=== PATIENT | male | born 1980 | race Caucasian/White ===

== ENCOUNTER 2018-07-11 11:22 | Inpatient (IN) | payer BC, OTHER ==
[2018-07-11 11:57] VITALS: BMI 28.8
--- NOTE | 2018-07-11 19:48 | HP ---
CIWA Score Nausea/Vomitin-Int. Nausea w/Dry Heave Muscle Tremors: 7-Severe,w/o Arm Extended Anxiety: 3 Agitation: 0-Normal Activity Paroxysmal Sweats: 3 Orientation: 0-Oriented Tacttile Disturbances: 0-None Auditory Disturbances: 0-None Visual Disturbances: 0-None Headache: 0-None Present CIWA-Ar Total Score: 17 - Admission Criteria OASAS Guidelines: Admission for Medically Managed Detox: Requires at least one of the followin. CIWA greater than 12 2. Seizures within the past 24 hours 3. Delirium tremens within the past 24 hours 4. Hallucinations within the past 24 hours 5. Acute intervention needed for co occurring medical disorder 6. Acute intervention needed for co occurring psychiatric disorder 7. Severe withdrawal that cannot be handled at a lower level of care (continued vomiting, continued diarrhea, abnormal vital signs) requiring intravenous medication and/or fluids 8. Patient presents the following: CIWA greater than 12 Admission Criteria Met: Admission criteria met Admission ROS [facility] Chief Complaint: Here for alcohol withdrawal. Allergies/Adverse Reactions: Allergies Allergy/AdvReac Type Severity Reaction Status Date / Time No Known Allergies Allergy Verified 07/11/18 14:34 History of Present Illness: Alcohol use started at age 14. Nicotine use started at age 15. States patch causes nightmares and shakes. Wants gum only Heroin use started at age 18. Currently on agonist tx. Currently at [facility] O[facility] - On Methadone 100 mg PO Daily. [phone] Hx: Blackouts - last 2 days ago. Hx: Opiate overdose - last 1 year ago. Denies hx seizures. Longest length of sobriety 2 years. PDMP negative. Hx: HTN. Denies other significant PMH/PSH States hx Barretts' Esophagus w/o recent exacerbation of acid reflux. Exam Limitations: No Limitations - Ebola screening Have you traveled outside of the country in the last 21 days: No Have you had contact with anyone from an Ebola affected area: No Have you been sick,other than usual withdrawal symptoms: No Do you have a fever: No - Review of Systems Constitutional: Chills, Diaphoresis, Changes in sleep (Difficulty falling asleep ) EENT: reports: Blurred Vision (Wears glasses), Dental Problems (Nothing acute. Chews and swallows ok.) Respiratory: reports: No Symptoms reported Cardiac: reports: No Symptoms Reported, Other (Hx HTN) GI: reports: Nausea, Indigestion (Hx. Barretts' Esophogus. Denies current GERD symptoms.) : reports: No Symptoms Reported Musculoskeletal: reports: No Symptoms Reported Integumentary: reports: No Symptoms Reported Endocrine: reports: Increased Thirst Hematology: reports: No Symptoms Reported Psychiatric: reports: Judgement Intact, Orientated x3, Anxious, Depressed ( Denies thoughts of harming self or others) Patient History - Patient Medical History Hx Asthma: No Hx Chronic Obstructive Pulmonary Disease (COPD): No Hx Cardiac Disorders: No Hx Hypertension: Yes (non compliant with med.) Hx Seizures: No Hx Diabetes: No Hx Gastrointestinal Disorders: No Hx Liver Disease: No Hx Genitourinary Disorders: No Hx Sexually Transmitted Disorders: No Hx Renal Disease (ESRD): No Hx Thyroid Disease: No Hx Human Immunodeficiency Virus (HIV): No (2018) Hx Hepatitis C: Yes (Medicated - cured) Hx Depression: Yes Hx Suicide Attempt: No Hx Schizophrenia: No - Patient Surgical History Past Surgical History: No - PPD History Previous Implant?: Yes Documented Results: Negative w/o proof Implanted On Prior [facility] Admission?: No PPD to be Administered?: Yes - Smoking Cessation Smoking history: Current every day smoker Have you smoked in the past 12 months: Yes Aproximately how many cigarettes per day: 10 Hx Chewing Tobacco Use: No Initiated information on smoking cessation: Yes 'Breaking Loose' booklet given: 07/11/18 - Substance & Tx. History Hx Alcohol Use: Yes Hx Substance Use: Yes Substance Use Type: Alcohol, Cocaine, Heroin Hx Substance Use Treatment: Yes (detox, rehab, Currently on a MMTP) - Substances Abused Alcohol Route: Oral Frequency: Daily Amount used: 2 pints vodka/ 6pk beer Age of first use: 14 Date of Last Use: 07/11/18 Admission Physical Exam BHS - Vital Signs Vital Signs: Vital Signs - 24 hr 07/11/18 11:55 Temperature 97.1 F L Pulse Rate 69 Respiratory 20 Rate Blood Pressure 147/101 H - Physical General Appearance: Yes: Mild Distress, Tremorous (Temors w/ hands at rest and becomes severe when arms elevated.) HEENTM: Yes: EOMI (but with jerking movement of eyes), Hearing grossly Normal, DAVIS Respiratory: Yes: Chest Non-Tender, Lungs Clear, Normal Breath Sounds, No Respiratory Distress Neck: Yes: No masses,lesions,Nodules, Supple Breast: Yes: Breast Exam Deferred Cardiology: Yes: Regular Rhythm, Regular Rate, S1, S2 Abdominal: Yes: Non Tender, Soft, Increased Bowel Sounds Genitourinary: Yes: Within Normal Limits Back: Yes: Normal Inspection Musculoskeletal: Yes: full range of Motion, Gait Steady, Pelvis Stable Extremities: Yes: Normal Capillary Refill, Tremors (Temors w/ hands at rest and becomes severe when arms elevated.) Neurological: Yes: senior recruiter II-XII NML intact (Grossly intact - but w/ jerking movement of eyes.), Alert, Motor Strength 5/5, Normal Mood/Affect Integumentary: Yes: Normal Color, Dry, Warm Lymphatic: Yes: Within Normal Limits - Diagnostic (1) Alcohol dependence with uncomplicated withdrawal Current Visit: Yes Status: Acute (2) Methadone maintenance therapy patient Current Visit: Yes Status: Chronic (3) Nicotine dependence, uncomplicated Current Visit: Yes Status: Acute Qualifiers: Nicotine product type: cigarettes Qualified Code(s): F17.210 - Nicotine dependence, cigarettes, uncomplicated (4) Essential (primary) hypertension Current Visit: Yes Status: Chronic (5) History of Contreras's esophagus Current Visit: Yes Status: Inactive (6) Nystagmus Current Visit: Yes Status: Acute Cleared for Admission [facility] - Detox or Rehab [facility] Level of Care: Medically Managed Detox Regimen/Protocol: Librium [facility] Breath Alcohol Content Breath Alcohol Content: 0.011 Urine Drug Screen - Results Drug Screen Negative: No Urine Drug Screen Results: BAR-Barbiturates, MTD-Methadone
[2018-07-11] MEDS ORDERED: ACETAMINOPHEN 325 MG TABLET (FP) PO PRN (20:06)
[2018-07-11] MEDS ORDERED: MENTHOL/PHENOL 1 EACH UD MM PRN (20:06)
[2018-07-11] MEDS ORDERED: MAGNESIUM HYDROX 2400MG/30ML ORAL SUSPENSION 30 ML CUP PO PRN (20:06)
[2018-07-11] MEDS ORDERED: LOPERAMIDE HCL 2 MG CAPSULE PO PRN (20:06)
[2018-07-11] MEDS ORDERED: chlordiazePOXIDE HCL 25 MG CAPSULE PO ONE (20:06)
[2018-07-11] MEDS ORDERED: chlordiazePOXIDE HCL 25 MG CAPSULE PO PRN (20:06)
[2018-07-11] MEDS ORDERED: MAG HYDROX/AL HYDROX/SIMETH 30 ML UNIT-DOSE CUP PO PRN (20:06)
[2018-07-11] MEDS ORDERED: IBUPROFEN 400 MG TABLET (FP) PO PRN (20:06)
[2018-07-11] MEDS ORDERED: MAGNESIUM CITRATE 300 ML BOTTLE PO PRN (20:06)
--- NOTE | 2018-07-11 20:13 | HP ---
CIWA Score Nausea/Vomitin-Int. Nausea w/Dry Heave Muscle Tremors: 7-Severe,w/o Arm Extended Anxiety: 3 Agitation: 0-Normal Activity Paroxysmal Sweats: 3 Orientation: 0-Oriented Tacttile Disturbances: 0-None Auditory Disturbances: 0-None Visual Disturbances: 0-None Headache: 0-None Present CIWA-Ar Total Score: 17 - Admission Criteria OASAS Guidelines: Admission for Medically Managed Detox: Requires at least one of the followin. CIWA greater than 12 2. Seizures within the past 24 hours 3. Delirium tremens within the past 24 hours 4. Hallucinations within the past 24 hours 5. Acute intervention needed for co occurring medical disorder 6. Acute intervention needed for co occurring psychiatric disorder 7. Severe withdrawal that cannot be handled at a lower level of care (continued vomiting, continued diarrhea, abnormal vital signs) requiring intravenous medication and/or fluids 8. Admission ROS [facility] Allergies/Adverse Reactions: Allergies Allergy/AdvReac Type Severity Reaction Status Date / Time No Known Allergies Allergy Verified 07/11/18 14:34 - Ebola screening Have you traveled outside of the country in the last 21 days: No Have you had contact with anyone from an Ebola affected area: No Have you been sick,other than usual withdrawal symptoms: No Do you have a fever: No Patient History - Patient Medical History Hx Asthma: No Hx Chronic Obstructive Pulmonary Disease (COPD): No Hx Cardiac Disorders: No Hx Hypertension: Yes (non compliant with med.) Hx Seizures: No Hx Diabetes: No Hx Gastrointestinal Disorders: No Hx Liver Disease: No Hx Genitourinary Disorders: No Hx Sexually Transmitted Disorders: No Hx Renal Disease (ESRD): No Hx Thyroid Disease: No Hx Human Immunodeficiency Virus (HIV): No (2018) Hx Hepatitis C: Yes (Medicated - cured) Hx Depression: Yes Hx Suicide Attempt: No Hx Schizophrenia: No - Patient Surgical History Past Surgical History: No - PPD History Previous Implant?: Yes Documented Results: Negative w/o proof Implanted On Prior [facility] Admission?: No - Smoking Cessation Smoking history: Current every day smoker Have you smoked in the past 12 months: Yes Aproximately how many cigarettes per day: 10 Hx Chewing Tobacco Use: No Initiated information on smoking cessation: Yes - Substances Abused Alcohol Route: Oral Frequency: Daily Amount used: 2 pints vodka/ 6pk beer Age of first use: 14 Date of Last Use: 07/11/18 Admission Physical Exam BHS - Vital Signs Vital Signs: Vital Signs - 24 hr 07/11/18 11:55 Temperature 97.1 F L Pulse Rate 69 Respiratory 20 Rate Blood Pressure 147/101 H - Diagnostic (1) Alcohol dependence with uncomplicated withdrawal Current Visit: Yes Status: Acute (2) Methadone maintenance therapy patient Current Visit: Yes Status: Acute (3) Nicotine dependence, uncomplicated Current Visit: Yes Status: Acute (4) Essential (primary) hypertension Current Visit: Yes Status: Acute (5) History of Contreras's esophagus Current Visit: Yes Status: Acute BHS Breath Alcohol Content Breath Alcohol Content: 0.011 Urine Drug Screen - Results Drug Screen Negative: No Urine Drug Screen Results: BAR-Barbiturates, MTD-Methadone
[2018-07-11] MEDS: chlordiazePOXIDE HCL 25 MG CAPSULE PO SCH (22:21)
[2018-07-11] MEDS: THIAMINE HCL 100 MG TABLET (FP) PO SCH (22:21)
[2018-07-11 23:28] LABS: URINE APPEARANCE CLOUDY; URINE BILIRUBIN NEGATIVE (<2.0 mg/dL); URINE COLOR YELLOW; URINE GLUCOSE (UA) NEGATIVE (NEGATIVE); URINE KETONE NEGATIVE (NEGATIVE); URINE LEUK ESTERASE 3+ (NEGATIVE); URINE NITRITE NEGATIVE (NEGATIVE); URINE PROTEIN NEGATIVE (NEGATIVE); URINE UROBILINOGEN NEGATIVE mg/dL (0.2-1.0)
[2018-07-11 23:31] LABS: EPI CELLS RARE /HPF (FEW); URINE MUCUS RARE
[2018-07-12] MEDS: chlordiazePOXIDE HCL 25 MG CAPSULE PO SCH ×4 (05:32→22:17)
[2018-07-12] MEDS ORDERED: METHADONE HCL 10 MG TABLET PO ONE (09:21)
[2018-07-12] MEDS: PRENATAL VITAMINS W/ FOLIC ACID TABLET (FP) PO SCH (10:07)
[2018-07-12] MEDS ORDERED: METHADONE HCL 40 MG DISPERSABLE TABLET ONE ×2 (10:09→10:25)
[2018-07-12] MEDS ORDERED: METHADONE HCL 10 MG TABLET ONE (10:25)
--- NOTE | 2018-07-12 10:25 | PN ---
[facility] CIWA - CIWA Score Nausea/Vomitin-No Nausea/No Vomiting (reports diarrhea) Muscle Tremors: 3 Anxiety: 4-Mod. Anxious/Guarded Agitation: 4-Moderately Restless Paroxysmal Sweats: No Perspiration Orientation: 0-Oriented Tacttile Disturbances: 0-None Auditory Disturbances: 0-None Visual Disturbances: 0-None Headache: 0-None Present CIWA-Ar Total Score: 11 BHS Progress Note (SOAP) Subjective: PT C/O ANXIETY,IRRITABILITY, STOMACH CRAMPS AND DIARRHEA. Objective: 07/12/18 10:27 Vital Signs 07/12/18 07/12/18 03:30 06:15 Temperature 97.7 F Pulse Rate 53 L Respiratory 16 18 Rate Blood Pressure 123/77 Laboratory Tests 07/11/18 23:10 Urine Color Yellow Urine Appearance Cloudy Urine pH 5.0 Ur Specific [place] 1.024 Urine Protein Negative Urine Glucose (UA) Negative Urine Ketones Negative Urine Blood Negative Urine Nitrite Negative Urine Bilirubin Negative Urine Urobilinogen Negative Ur Leukocyte Esterase 3+ H Urine WBC (Auto) 72 Urine RBC (Auto) 1 Ur Epithelial Cells Rare Urine Mucus Rare OTHER LABS PENDING; UA NOTED. Assessment: 07/12/18 10:28 WITHDRAWAL SX ABNORMAL UA-ELEVATED WBC IN URINE AND LEUK MARIELA 3+ ASYMPTOMATIC Plan: CONTINUE DETOX INCREASE PO FLUIDS TOLERATED; REPEAT UA TODAY.
[2018-07-12] MEDS ORDERED: METHADONE 80 MG, METHADONE 20 MG PO ONE (10:30)
[2018-07-12] MEDS ORDERED: METHADONE 80 MG, METHADONE (DETOX) 20 MG PO ONE (10:30)
[2018-07-12 11:28] LABS: ALBUMIN 3.5 g/dl (3.4-5.0); ALK PHOS 86 U/L (45-117); ANION GAP 8 MMOL/L (8-16); BILIRUBIN,TOTAL 0.4 mg/dL (0.2-1); BLOOD UREA NITROGEN 13 mg/dL (7-18); CALCIUM 8.5 mg/dL (8.5-10.1); CHLORIDE 103 mmol/L (98-107); CO2 27 mmol/L (21-32); CREATININE 0.8 mg/dL (0.55-1.3); GLUCOSE,RANDOM 99 mg/dL (74-106); POTASSIUM 3.5 mmol/L (3.5-5.1); SGOT/AST 29 U/L (15-37); SGPT/ALT 53 U/L (13-61); SODIUM 138 mmol/L (136-145); TOT PROT 7.7 g/dl (6.4-8.2)
[2018-07-12 11:34] LABS: HEMATOCRIT 41.1 % (35.4-49); HEMOGLOBIN 13.8 GM/dL (11.7-16.9); MCH 30.4 pg (25.7-33.7); MCHC 33.5 g/dl (32.0-35.9); MEAN CELL VOLUME 90.7 fl (80-96); MEAN PLT VOLUME 8.7 fl (7.5-11.1); PLATELET COUNT 226 K/MM3 (134-434); RBC 4.53 M/mm3 (4.00-5.60); RDW 13.4 % (11.9-15.9); WHITE BLOOD COUNT 6.1 K/mm3 (4.0-10.0)
[2018-07-12] MEDS: NICOTINE POLACRILEX 2 MG GUM BC PRN ×2 (12:21→17:17)
[2018-07-12] MEDS: THIAMINE HCL 100 MG TABLET (FP) PO SCH (22:16)
[2018-07-12] MEDS: MELATONIN 5 MG TABLETS PO PRN (22:17)
[2018-07-13] MEDS ORDERED: METHADONE HCL 40 MG DISPERSABLE TABLET ONE (04:15)
[2018-07-13] MEDS ORDERED: METHADONE HCL 10 MG TABLET (FOR DETOX USE ONLY) ONE (04:15)
[2018-07-13] MEDS: METHADONE 80 MG, METHADONE (DETOX) 20 MG PO SCH (05:41)
[2018-07-13] MEDS: chlordiazePOXIDE HCL 25 MG CAPSULE PO SCH ×3 (05:41→17:12)
[2018-07-13] MEDS ORDERED: METHADONE HCL 10 MG TABLET PO SCH (06:00)
[2018-07-13] MEDS: PRENATAL VITAMINS W/ FOLIC ACID TABLET (FP) PO SCH (10:05)
[2018-07-13] MEDS: NICOTINE POLACRILEX 2 MG GUM BC PRN ×2 (10:06→17:13)
--- NOTE | 2018-07-13 15:28 | PN ---
S CIWA - CIWA Score Nausea/Vomitin Muscle Tremors: 4-Moderate,w/Arms Extend Anxiety: 4-Mod. Anxious/Guarded Agitation: 1-Slight > Activity Paroxysmal Sweats: 3 Orientation: 0-Oriented Tacttile Disturbances: 1-Very Mild Itch/Numbness Auditory Disturbances: 0-None Visual Disturbances: 0-None Headache: 0-None Present CIWA-Ar Total Score: 15 BHS Progress Note (SOAP) Subjective: Diarrhea, stomach cramps, sweating, interrupted sleep Objective: 07/13/18 15:27 Last Vital Signs Temp Pulse Resp BP Pulse Ox 97.4 F L 69 16 126/78 07/13/18 14:54 07/13/18 14:54 07/13/18 14:54 07/13/18 14:54 Laboratory Tests 07/11/18 07/12/18 07/12/18 23:10 05:40 05:40 WBC 6.1 RBC 4.53 Hgb 13.8 Hct 41.1 MCV 90.7 MCH 30.4 MCHC 33.5 RDW 13.4 Plt Count 226 MPV 8.7 Sodium 138 Potassium 3.5 Chloride 103 Carbon Dioxide 27 Anion Gap 8 BUN 13 Creatinine 0.8 Creat Clearance w eGFR > 60 Random Glucose 99 Calcium 8.5 Total Bilirubin 0.4 AST 29 ALT 53 Alkaline Phosphatase 86 Total Protein 7.7 Albumin 3.5 Urine Color Yellow Urine Appearance Cloudy Urine pH 5.0 Ur Specific [place] 1.024 Urine Protein Negative Urine Glucose (UA) Negative Urine Ketones Negative Urine Blood Negative Urine Nitrite Negative Urine Bilirubin Negative Urine Urobilinogen Negative Ur Leukocyte Esterase 3+ H Urine WBC (Auto) 72 Urine RBC (Auto) 1 Ur Epithelial Cells Rare Urine Mucus Rare RPR Titer 07/12/18 05:40 WBC RBC Hgb Hct MCV MCH MCHC RDW Plt Count MPV Sodium Potassium Chloride Carbon Dioxide Anion Gap BUN Creatinine Creat Clearance w eGFR Random Glucose Calcium Total Bilirubin AST ALT Alkaline Phosphatase Total Protein Albumin Urine Color Urine Appearance Urine pH Ur Specific [place] Urine Protein Urine Glucose (UA) Urine Ketones Urine Blood Urine Nitrite Urine Bilirubin Urine Urobilinogen Ur Leukocyte Esterase Urine WBC (Auto) Urine RBC (Auto) Ur Epithelial Cells Urine Mucus RPR Titer Nonreactive Labs reviewed Assessment: 07/13/18 15:28 Withdrawal sxs Plan: Continue detox Encouraged PO water intake
--- NOTE | 2018-07-13 19:32 | EKG ---
Test Reason : Blood Pressure : / mmHG Vent. Rate : 071 BPM Atrial Rate : 071 BPM P-R Int : 166 ms QRS Dur : 080 ms QT Int : 428 ms P-R-T Axes : 053 059 022 degrees QTc Int : 465 ms NORMAL SINUS RHYTHM NORMAL ECG NO PREVIOUS ECGS AVAILABLE Confirmed by GUS CHANG MD ([id number]) on 07/13/2018 7:32:27 PM Referred By: Confirmed By:GUS CHANG MD
[2018-07-13] MEDS: THIAMINE HCL 100 MG TABLET (FP) PO SCH (22:28)
[2018-07-13] MEDS: chlordiazePOXIDE 5 MG CAPSULE PO SCH (22:29)
[2018-07-13] MEDS: MELATONIN 5 MG TABLETS PO PRN (22:29)
[2018-07-14] MEDS ORDERED: METHADONE HCL 40 MG DISPERSABLE TABLET ONE (04:27)
[2018-07-14] MEDS ORDERED: METHADONE HCL 10 MG TABLET (FOR DETOX USE ONLY) ONE (04:27)
[2018-07-14] MEDS: chlordiazePOXIDE 5 MG CAPSULE PO SCH ×3 (06:45→17:41)
[2018-07-14] MEDS: METHADONE 80 MG, METHADONE (DETOX) 20 MG PO SCH (06:46)
[2018-07-14] MEDS: PRENATAL VITAMINS W/ FOLIC ACID TABLET (FP) PO SCH (10:24)
[2018-07-14] MEDS: NICOTINE POLACRILEX 2 MG GUM BC PRN (10:27)
[2018-07-14 14:20] LABS: URINE APPEARANCE CLEAR; URINE BILIRUBIN NEGATIVE (<2.0 mg/dL); URINE COLOR STRAW; URINE GLUCOSE (UA) NEGATIVE (NEGATIVE); URINE KETONE NEGATIVE (NEGATIVE); URINE LEUK ESTERASE 1+ (NEGATIVE); URINE NITRITE NEGATIVE (NEGATIVE); URINE PROTEIN NEGATIVE (NEGATIVE); URINE UROBILINOGEN NEGATIVE mg/dL (0.2-1.0)
[2018-07-14 14:38] LABS: EPI CELLS RARE /HPF (FEW)
--- NOTE | 2018-07-14 18:25 | PN ---
BHS Progress Note (SOAP) Subjective: shakes sweats abd cramp Objective: 07/14/18 18:25 A & O x 3 In day room no acute distress Assessment: 07/14/18 18:25 withdrawal sx Plan: continue detox
[2018-07-14] MEDS: MELATONIN 5 MG TABLETS PO PRN (22:28)
[2018-07-14] MEDS: chlordiazePOXIDE HCL 10 MG CAPSULE PO SCH (22:28)
[2018-07-14] MEDS: THIAMINE HCL 100 MG TABLET (FP) PO SCH (22:28)
[2018-07-15] MEDS ORDERED: METHADONE HCL 40 MG DISPERSABLE TABLET ONE (04:20)
[2018-07-15] MEDS ORDERED: METHADONE HCL 10 MG TABLET (FOR DETOX USE ONLY) ONE (04:21)
[2018-07-15] MEDS: chlordiazePOXIDE HCL 10 MG CAPSULE PO SCH ×2 (05:39→10:09)
[2018-07-15] MEDS: METHADONE 80 MG, METHADONE (DETOX) 20 MG PO SCH (05:39)
[2018-07-15] MEDS: NICOTINE POLACRILEX 2 MG GUM BC PRN (08:35)
[2018-07-15 09:35] VITALS: BP 104/68; PULSE 76; TEMP 96.7
[2018-07-15] MEDS: PRENATAL VITAMINS W/ FOLIC ACID TABLET (FP) PO SCH (10:09)
--- NOTE | 2018-07-15 12:38 | DS ---
[facility] Detox Discharge Summary Admission Date: 07/11/18 Discharge Date: 07/15/18 - History Present History: Alcohol Dependence, MMTP Pertinent Past History: Alcohol dependence Opioid dependence on agonist Nicotine dependence HTN Contreras's esophagus - Physical Exam Results Vital Signs: Vital Signs Temperature 96.7 F L 07/15/18 09:34 Pulse Rate 76 07/15/18 09:34 Respiratory Rate 18 07/15/18 09:34 Blood Pressure 104/68 07/15/18 09:34 O2 Sat by Pulse Oximetry (%) Pertinent Admission Physical Exam Findings: Withdrawal symptoms Laboratory Tests 07/11/18 07/12/18 07/12/18 23:10 05:40 05:40 WBC 6.1 RBC 4.53 Hgb 13.8 Hct 41.1 MCV 90.7 MCH 30.4 MCHC 33.5 RDW 13.4 Plt Count 226 MPV 8.7 Sodium 138 Potassium 3.5 Chloride 103 Carbon Dioxide 27 Anion Gap 8 BUN 13 Creatinine 0.8 Creat Clearance w eGFR > 60 Random Glucose 99 Calcium 8.5 Total Bilirubin 0.4 AST 29 ALT 53 Alkaline Phosphatase 86 Total Protein 7.7 Albumin 3.5 Urine Color Yellow Urine Appearance Cloudy Urine pH 5.0 Ur Specific [place] 1.024 Urine Protein Negative Urine Glucose (UA) Negative Urine Ketones Negative Urine Blood Negative Urine Nitrite Negative Urine Bilirubin Negative Urine Urobilinogen Negative Ur Leukocyte Esterase 3+ H Urine WBC (Auto) 72 Urine RBC (Auto) 1 Ur Epithelial Cells Rare Urine Mucus Rare RPR Titer 07/12/18 07/14/18 05:40 10:30 WBC RBC Hgb Hct MCV MCH MCHC RDW Plt Count MPV Sodium Potassium Chloride Carbon Dioxide Anion Gap BUN Creatinine Creat Clearance w eGFR Random Glucose Calcium Total Bilirubin AST ALT Alkaline Phosphatase Total Protein Albumin Urine Color Straw Urine Appearance Clear Urine pH 7.0 D Ur Specific [place] 1.008 L Urine Protein Negative Urine Glucose (UA) Negative Urine Ketones Negative Urine Blood Negative Urine Nitrite Negative Urine Bilirubin Negative Urine Urobilinogen Negative Ur Leukocyte Esterase 1+ H D Urine WBC (Auto) 2 Urine RBC (Auto) <1 Ur Epithelial Cells Rare Urine Mucus RPR Titer Nonreactive Labs reviewed - Treatment Hospital Course: Detox Protocol Followed, Detoxed Safely, Responded well, Discharged Condition Good, Rehab Referral Accepted - Medication Discharge Medications: Ambulatory Orders Propranolol HCl 20 mg PO BID 07/11/18 - Diagnosis (1) Alcohol dependence with uncomplicated withdrawal Current Visit: Yes Status: Acute (2) Nicotine dependence, uncomplicated Current Visit: Yes Status: Chronic Qualifiers: Nicotine product type: cigarettes Qualified Code(s): F17.210 - Nicotine dependence, cigarettes, uncomplicated (3) Essential (primary) hypertension Current Visit: Yes Status: Chronic (4) Methadone maintenance therapy patient Current Visit: Yes Status: Chronic (5) History of Contreras's esophagus Current Visit: Yes Status: Chronic - AMA Did Patient Leave Against Medical Advice: No (Patient accepted admission to [facility])
== END 2018-07-15 12:45 | disposition home or self-care (01) | DRG 773 ==
LOC: YASAS 11:22 → Y3N 16:47
PROC: HZ2ZZZZ Detoxification Services for Substance Abuse Treatment (ICD-10-PCS; principal; 2018-07-11)
DX: F10.230 Alcohol dependence with withdrawal, uncomplicated (principal); F11.20 Opioid dependence, uncomplicated; F17.210 Nicotine dependence, cigarettes, uncomplicated; I10 Essential (primary) hypertension; R82.90 Unspecified abnormal findings in urine; H55.00 Unspecified nystagmus; Z91.14 Patient's other noncompliance with medication regimen; Z87.19 Personal history of other diseases of the digestive system
CPT/HCPCS: 36415; 80053; 81003; 81015; 85027; 86593; 93005; 93010

== ENCOUNTER 2018-07-15 12:56 | Inpatient (IN) | payer OTHER ==
[2018-07-15] MEDS ORDERED: ACETAMINOPHEN 325 MG TABLET (FP) PO PRN (13:38)
[2018-07-15] MEDS ORDERED: guaiFENesin/D-METHORPHAN HB 10 ML UNIT-DOSE CUPS PO PRN (13:38)
[2018-07-15] MEDS ORDERED: LOPERAMIDE HCL 2 MG CAPSULE PO PRN (13:38)
[2018-07-15] MEDS ORDERED: MAG HYDROX/AL HYDROX/SIMETH 30 ML UNIT-DOSE CUP PO PRN (13:38)
[2018-07-15] MEDS ORDERED: MENTHOL/PHENOL 1 EACH UD MM PRN (13:38)
[2018-07-15] MEDS ORDERED: IBUPROFEN 400 MG TABLET (FP) PO PRN (13:38)
[2018-07-15] MEDS ORDERED: P-EPHED 60MG/TRIPROLIDI 2.5MG TABLET PO PRN (13:38)
[2018-07-15] MEDS ORDERED: MAGNESIUM CITRATE 300 ML BOTTLE PO PRN (13:38)
[2018-07-15] MEDS ORDERED: MAGNESIUM HYDROX 2400MG/30ML ORAL SUSPENSION 30 ML CUP PO PRN (13:38)
[2018-07-15] MEDS ORDERED: hydrOXYzine PAMOATE 25 MG CAPSULE (FP) PO PRN (13:38)
[2018-07-15] MEDS: THIAMINE HCL 100 MG TABLET (FP) PO SCH (21:21)
[2018-07-15] MEDS: MELATONIN 5 MG TABLETS PO PRN (21:22)
[2018-07-16] MEDS ORDERED: METHADONE HCL 10 MG TABLET PO SCH (06:00)
[2018-07-16] MEDS ORDERED: METHADONE HCL 10 MG TABLET ONE (06:15)
[2018-07-16] MEDS ORDERED: METHADONE HCL 40 MG DISPERSABLE TABLET ONE (06:15)
[2018-07-16] MEDS: METHADONE 80 MG, METHADONE 20 MG PO SCH (06:16)
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
[2018-07-16] MEDS: FLUoxetine HCL 20 MG CAPSULE (FP) PO SCH (09:59)
[2018-07-16] MEDS: PRENATAL VITAMINS W/ FOLIC ACID TABLET (FP) PO SCH (09:59)
[2018-07-16] MEDS: NICOTINE POLACRILEX 2 MG GUM BUC PRN ×3 (10:00→17:36)
[2018-07-16] MEDS: SUVOREXANT 10 MG TABLET PO PRN (21:33)
[2018-07-16] MEDS: THIAMINE HCL 100 MG TABLET (FP) PO SCH (21:33)
[2018-07-17] MEDS ORDERED: METHADONE HCL 40 MG DISPERSABLE TABLET ONE (03:26)
[2018-07-17] MEDS ORDERED: METHADONE HCL 10 MG TABLET ONE (03:26)
[2018-07-17] MEDS: METHADONE 80 MG, METHADONE 20 MG PO SCH (06:04)
[2018-07-17] MEDS: PRENATAL VITAMINS W/ FOLIC ACID TABLET (FP) PO SCH (10:36)
[2018-07-17] MEDS: FLUoxetine HCL 20 MG CAPSULE (FP) PO SCH (10:36)
[2018-07-17] MEDS: NICOTINE POLACRILEX 2 MG GUM BUC PRN ×3 (10:37→21:32)
[2018-07-17] MEDS: SUVOREXANT 10 MG TABLET PO PRN (21:31)
[2018-07-17] MEDS: THIAMINE HCL 100 MG TABLET (FP) PO SCH (21:37)
[2018-07-18] MEDS ORDERED: METHADONE HCL 40 MG DISPERSABLE TABLET ONE (04:41)
[2018-07-18] MEDS ORDERED: METHADONE HCL 10 MG TABLET ONE (04:41)
[2018-07-18] MEDS: METHADONE 80 MG, METHADONE 20 MG PO SCH (06:11)
[2018-07-18] MEDS: NICOTINE POLACRILEX 2 MG GUM BUC PRN ×4 (06:11→21:34)
[2018-07-18] MEDS: FLUoxetine HCL 20 MG CAPSULE (FP) PO SCH (10:19)
[2018-07-18] MEDS: PRENATAL VITAMINS W/ FOLIC ACID TABLET (FP) PO SCH (10:19)
[2018-07-18] MEDS: THIAMINE HCL 100 MG TABLET (FP) PO SCH (21:33)
[2018-07-18] MEDS: SUVOREXANT 10 MG TABLET PO PRN (21:33)
[2018-07-19] MEDS ORDERED: METHADONE HCL 40 MG DISPERSABLE TABLET ONE (04:23)
[2018-07-19] MEDS ORDERED: METHADONE HCL 10 MG TABLET ONE (04:23)
[2018-07-19] MEDS: METHADONE 80 MG, METHADONE 20 MG PO SCH (06:25)
[2018-07-19] MEDS: NICOTINE POLACRILEX 2 MG GUM BUC PRN ×4 (06:28→21:27)
[2018-07-19] MEDS: FLUoxetine HCL 20 MG CAPSULE (FP) PO SCH (09:47)
[2018-07-19] MEDS: PRENATAL VITAMINS W/ FOLIC ACID TABLET (FP) PO SCH (09:47)
[2018-07-19] MEDS: THIAMINE HCL 100 MG TABLET (FP) PO SCH (21:26)
[2018-07-19] MEDS: SUVOREXANT 10 MG TABLET PO PRN (21:26)
[2018-07-20] MEDS ORDERED: METHADONE HCL 10 MG TABLET ONE (06:30)
[2018-07-20] MEDS ORDERED: METHADONE HCL 40 MG DISPERSABLE TABLET ONE (06:30)
[2018-07-20] MEDS: NICOTINE POLACRILEX 2 MG GUM BUC PRN ×4 (06:31→21:32)
[2018-07-20] MEDS: METHADONE 80 MG, METHADONE 20 MG PO SCH (06:31)
[2018-07-20] MEDS: PRENATAL VITAMINS W/ FOLIC ACID TABLET (FP) PO SCH (09:51)
[2018-07-20] MEDS: FLUoxetine HCL 20 MG CAPSULE (FP) PO SCH (09:51)
[2018-07-20] MEDS: THIAMINE HCL 100 MG TABLET (FP) PO SCH (21:32)
[2018-07-20] MEDS: MELATONIN 5 MG TABLETS PO PRN (21:32)
[2018-07-21] MEDS ORDERED: METHADONE HCL 10 MG TABLET ONE (02:44)
[2018-07-21] MEDS ORDERED: METHADONE HCL 40 MG DISPERSABLE TABLET ONE (02:44)
[2018-07-21] MEDS: METHADONE 80 MG, METHADONE 20 MG PO SCH (06:08)
[2018-07-21 06:55] VITALS: BP 118/81; PULSE 58; TEMP 97.8
[2018-07-21] MEDS: PRENATAL VITAMINS W/ FOLIC ACID TABLET (FP) PO SCH (09:15)
[2018-07-21] MEDS: FLUoxetine HCL 20 MG CAPSULE (FP) PO SCH (09:15)
[2018-07-21] MEDS: NICOTINE POLACRILEX 2 MG GUM BUC PRN (09:17)
== END 2018-07-21 09:25 | disposition left against medical advice (07) | DRG 770 ==
LOC: YASAS 12:56 → Y5N 12:57
PROVIDERS: ADMIT Psychiatry & Neurology Psychiatry; ATTEND Psychiatry & Neurology Psychiatry
PROC: HZ42ZZZ Group Counseling for Substance Abuse Treatment, Cognitive-Behavioral (ICD-10-PCS; principal; 2018-07-15)
DX: F10.20 Alcohol dependence, uncomplicated (principal); F11.20 Opioid dependence, uncomplicated; F17.210 Nicotine dependence, cigarettes, uncomplicated; F19.280 Other psychoactive substance dependence with psychoactive substance-induced anxiety disorder; F19.282 Other psychoactive substance dependence with psychoactive substance-induced sleep disorder; F43.10 Post-traumatic stress disorder, unspecified; F39 Unspecified mood [affective] disorder; F40.10 Social phobia, unspecified; I10 Essential (primary) hypertension; K21.9 Gastro-esophageal reflux disease without esophagitis; B18.2 Chronic viral hepatitis C; Z87.19 Personal history of other diseases of the digestive system